=== PATIENT | female | born 1940 | race Caucasian/White ===

== ENCOUNTER 2016-11-28 10:02 | Outpatient (CLI) | payer MEDICARE, OTHER ==
--- NOTE | 2016-11-28 11:25 | XRAY Report ---
MODIFIED BARIUM SWALLOW: 11/28/2016 CLINICAL INDICATION: Chronic cough. FINDINGS: Various consistencies of barium were prepared and administered in conjunction with Speech Pathology. There was no evidence of penetration or aspiration with any administered consistency. Pl ease also refer to full report from Speech Pathology for further findings. IMPRESSION: NO EVIDENCE OF PENETRATION OR ASPIRATION. FLUOROSCOPY TIME: 55 seconds; 1 spot image obtained (cinefluoroscopy recorded). JOB #: [id number] EXT JOB #:[id number]
== END 2016-11-28 10:03 | disposition home or self-care (01) ==
LOC: DI 10:02
PROVIDERS: ATTEND Family Medicine
DX: R05 Cough (principal)
CPT/HCPCS: 74230; 92611; G8996; G8997; G8998

== ENCOUNTER 2017-04-25 08:30 | Outpatient (CLI) | payer MEDICARE, OTHER | END 2017-04-25 08:31 | LOC: LAB.R 08:30 | PROVIDERS: ATTEND Family Medicine | DX: T14.90XA Injury, unspecified, initial encounter (principal); L03.90 Cellulitis, unspecified | CPT/HCPCS: 87070; 87205 ==

== ENCOUNTER 2017-05-02 18:13 | Outpatient (CLI) | payer MEDICARE, OTHER ==
--- NOTE | 2017-05-04 11:22 | Ultrasound Report ---
DATE OF SERVICE: 05/02/2017 LIMITED LEFT EXTREMITY NONVASCULAR ULTRASOUND: 05/02/2017 COMPARISON: None. INDICATION: Hematoma or cellulitis of the left leg. TECHNIQUE: Sonographic evaluation of the area of concern the left lateral lower leg and left popliteal fossa. FINDINGS: Over the primary area of concern, which is the lateral left lower leg , there is a hypoechoic fluid collection. It measures 8.8 x 4.4 x 1.2 cm, and may represent a hematoma given the history: About the posterior fossa, there is a fluid collection measuring 2.4 x 1.9 x 1.0 cm, likely a Ibrahim's cyst. IMPRESSION: AT THE PRIMARY AREA OF CONCERN, WHICH IS THE LATERAL LEFT LOWER LEG , THERE IS A FLUID COLLECTION THAT IS NONSPECIFIC BUT MAY REPRESENT A HEMATOMA. CORRELATE CLINICALLY. FOLLOWUP IS AVAILABLE. TD: 05/03/2017 10:55 MTDD
== END 2017-05-02 18:14 | disposition home or self-care (01) ==
LOC: DI 18:13
PROVIDERS: ATTEND Family Medicine
DX: S80.12XA Contusion of left lower leg, initial encounter (principal)
CPT/HCPCS: 76882

== ENCOUNTER 2018-08-27 09:12 | Outpatient (CLI) | payer MEDICARE, OTHER ==
--- NOTE | 2018-08-27 10:33 | XRAY Report ---
Reason: ARTHRITIS,HIPS,BILATERAL Procedure Date: 08/27/2018 Accession Number: [id number] / [id number] Procedure: WCP - Hip BILAT CPT Code: FULL RESULT: EXAM: BILATERAL HIP RADIOGRAPHY EXAM DATE: 08/27/2018 09:33 AM. CLINICAL HISTORY: ARTHRITIS,HIPS,BILATERAL. COMPARISON: None. TECHNIQUE: 2 views each. FINDINGS: Bones: Normal. No fractures or bone lesion. Right Hip: Significant right hip joint space narrowing with subchondral sclerosis and marginal osteophyte formation. Left Hip: Significant left hip joint space narrowing with subchondral sclerosis and marginal osteophyte formation. Soft Tissues: Normal. No soft tissue swelling. Loss of lower lumbar spine disk space height would be better assessed on dedicated lumbar imaging. IMPRESSION: Moderate to advanced bilateral hip degenerative changes. Right: Kellgren Donato Grade 3. Left: Kellgren Donato Grade 3. Kellgren and Donato classification of osteoarthritis: Grade 0: no radiographic features of osteoarthritis are present Grade 1: doubtful joint space narrowing (JSN) and possible osteophytic lipping Grade 2: definite osteophytes and possible JSN on anteroposterior weight-bearing radiograph Grade 3: multiple osteophytes, definite JSN, sclerosis, possible bony deformity Grade 4: large osteophytes, marked JSN, severe sclerosis and definite bony deformity RADIA
== END 2018-08-27 09:13 | disposition home or self-care (01) ==
LOC: DI.WCP 09:12
PROVIDERS: ATTEND Physician Assistant
DX: M16.0 Bilateral primary osteoarthritis of hip (principal)
CPT/HCPCS: 73521

== ENCOUNTER 2018-09-10 13:39 | Outpatient (CLI) | payer MEDICARE, OTHER ==
[2018-09-10 18:49] LABS: ALBUMIN 3.5 g/dL (3.2-5.5); ALBUMIN/GLOBULIN RATIO 1.1 (1.0-2.2); BILIRUBIN,TOTAL 0.5 mg/dL (0.2-1.0); CALCIUM 10.2 mg/dL (8.5-10.3); CREATININE 0.6 mg/dL (0.4-1.0); TOTAL PROTEIN 6.8 g/dL (6.7-8.2)
[2018-09-10 19:18] LABS: H. PYLORIS ANTIGEN STL NEGATIVE (Negative)
[2018-09-10 19:31] LABS: BASOPHILS # (AUTO) 0.1 10^3/uL (0.0-0.1); BASOPHILS % (AUTO) 0.7 %; EOSINOPHILS # (AUTO) 0.2 10^3/uL (0.0-0.7); EOSINOPHILS % (AUTO) 2.1 %; LYMPHOCYTES # (AUTO) 1.2 10^3/uL (1.5-3.5); LYMPHOCYTES % (AUTO) 15.7 %; MEAN CORPUSCULAR HGB CONC 32.7 g/dL (32.0-36.0); MEAN CORPUSCULAR VOLUME 91.7 fL (81.0-99.0); MONOCYTES # (AUTO) 0.6 10^3/uL (0.0-1.0); NEUTROPHILS # (AUTO) 5.8 10^3/uL (1.5-6.6); NEUTROPHILS % (AUTO) 73.5 %; PLT - PLATELET COUNT 285 10^3/uL (130-450); RED BLOOD COUNT 4.66 10^6/uL (4.20-5.40); RED CELL DISTRIBUTION WIDTH 14.3 % (12.0-15.0); WHITE BLOOD COUNT 7.9 x10^3/uL (4.8-10.8)
== END 2018-09-10 13:40 | disposition home or self-care (01) ==
LOC: LAB.WCP 13:39
PROVIDERS: ATTEND Physician Assistant
DX: R19.7 Diarrhea, unspecified (principal)
CPT/HCPCS: 36415; 80053; 81599; 83630; 85025; 87045; 87046; 87329; 87338; 87493

== ENCOUNTER 2018-10-05 08:00 | Outpatient (CLI) | payer MEDICARE, OTHER | END 2018-10-05 23:59 | disposition home or self-care (01) | LOC: LAB.R 08:00 | PROVIDERS: ATTEND Family Medicine | DX: N39.0 Urinary tract infection, site not specified (principal) | CPT/HCPCS: 87086; 87181 ==

== ENCOUNTER 2019-02-25 09:45 | Outpatient (CLI) | payer MEDICARE, OTHER | END 2019-02-25 23:59 | disposition home or self-care (01) | LOC: LAB.WCP 09:45 | PROVIDERS: ATTEND Family Medicine | DX: N39.0 Urinary tract infection, site not specified (principal) | CPT/HCPCS: 81002; 87086; 87181 ==

== ENCOUNTER 2019-03-29 10:15 | Outpatient (CLI) | payer MEDICARE, OTHER | END 2019-03-29 23:59 | disposition home or self-care (01) | LOC: LAB.R 10:15 | PROVIDERS: ATTEND Physician Assistant | DX: N39.0 Urinary tract infection, site not specified (principal) | CPT/HCPCS: 87086; 87181 ==

== ENCOUNTER 2019-04-15 11:00 | Outpatient (CLI) | payer MEDICARE, OTHER | END 2019-04-15 23:59 | disposition home or self-care (01) | LOC: LAB.R 11:00 | PROVIDERS: ATTEND Physician Assistant | DX: N39.0 Urinary tract infection, site not specified (principal) | CPT/HCPCS: 87086; 87181 ==

== ENCOUNTER 2020-07-29 14:35 | Outpatient (CLI) | payer MEDICARE, OTHER ==
--- NOTE | 2020-07-29 16:28 | XRAY Report ---
PROCEDURE: Ribs w/PA Chest RT INDICATIONS: CONTUSION OF THORAX TECHNIQUE: 3 views of the right ribs were acquired, along with a single view chest. COMPARISON: Rib x-ray 10/19/2016 FINDINGS: Surgical changes and devices: None. Bones and chest wall: There is a nondisplaced right seventh rib fracture. No suspicious bony lesions. Overlying soft tissues appear unremarkable. Lungs and pleura: No pleural effusions or pneumothorax. Lungs appear clear. Mediastinum: Mediastinal contours appear normal. Heart size is normal. IMPRESSION: Nondisplaced right seventh rib fracture. Reviewed by: Park Chou MD on 07/29/2020 4:27 PM PDT Approved by: Park Chou MD on 07/29/2020 4:27 PM PDT Station ID: [id number]
== END 2020-07-29 23:59 ==
LOC: DI.N 14:35
PROVIDERS: ATTEND Nurse Practitioner
DX: S22.31XA Fracture of one rib, right side, initial encounter for closed fracture (principal)

== ENCOUNTER 2021-05-05 08:00 | Outpatient (CLI) | payer MEDICARE, OTHER ==
--- NOTE | 2021-05-05 16:36 | XRAY Report ---
PROCEDURE: Ankle 3 View RT INDICATIONS: R ANKLE PX TECHNIQUE: 3 views of the ankle were acquired. COMPARISON: None FINDINGS: Bones: Displaced fracture of the distal right fibula. Mortise is normally aligned. Soft tissues: No tibiotalar joint effusion. Achilles tendon appears normal. IMPRESSION: Distal right fibular fracture. Reviewed by: Sakina Collier MD, PhD on 05/05/2021 4:34 PM PST Approved by: Sakina Collier MD, PhD on 05/05/2021 4:34 PM PST Station ID: [id number]
== END 2021-05-05 23:59 ==
LOC: DI.N 08:00
PROVIDERS: ATTEND Family Medicine
DX: S82.831A Other fracture of upper and lower end of right fibula, initial encounter for closed fracture (principal)

== ENCOUNTER 2021-05-10 09:49 | Outpatient (CLI) | payer MEDICARE, OTHER ==
--- NOTE | 2021-05-10 13:18 | XRAY Report ---
PROCEDURE: Ankle 3 View RT INDICATIONS: RIGHT ANKLE FX TECHNIQUE: 3 views of the ankle were acquired. COMPARISON: 05/05/2021 FINDINGS: Bones: No change in mildly displaced oblique fracture of the distal fibula. Ankle mortise is normall y aligned. No suspicious bony lesions. Soft tissues: No tibiotalar joint effusion. Achilles tendon appears normal. IMPRESSION: No change in distal fibular fracture. Reviewed by: Gretel Chávez MD on 05/10/2021 1:17 PM PST Approved by: Gretel Chávez MD on 05/10/2021 1:17 PM [facility] Station ID: [id number]
== END 2021-05-10 09:50 | disposition home or self-care (01) ==
LOC: DI.WOS 09:49
PROVIDERS: ATTEND Orthopaedic Surgery
DX: S82.64XA Nondisplaced fracture of lateral malleolus of right fibula, initial encounter for closed fracture (principal)

== ENCOUNTER 2021-06-03 08:20 | Outpatient (CLI) | payer MEDICARE, OTHER ==
--- NOTE | 2021-06-03 16:19 | XRAY Report ---
PROCEDURE: Ankle 3 View RT INDICATIONS: F/U ANKLE FRACTURE TECHNIQUE: 3 views of the ankle were acquired. COMPARISON: 05/10/2021, 05/05/2021 FINDINGS: Bones: There is a healing mildly displaced spiral fracture of the distal fibula extending to the tibi ofibular syndesmosis. The fracture lines are more indistinct consistent with bony remodeling with sug gestion of early partial callus formation. No change in alignment or syndesmotic widerning. Ankle mor tise is normally aligned. No suspicious bony lesions. There is osteopenia. Soft tissues: There is a small tibiotalar joint effusion. Achilles tendon appears intact. IMPRESSION: 1. Healing distal fibular fracture without change in alignment. Reviewed by: Guilherme Pepe MD on 06/03/2021 4:18 PM PST Approved by: Guilherme Pepe MD on 06/03/2021 4:18 PM PST Station ID: [id number]
== END 2021-06-03 08:21 | disposition home or self-care (01) ==
LOC: DI.WOS 08:20
PROVIDERS: ATTEND Orthopaedic Surgery
DX: S82.831D Other fracture of upper and lower end of right fibula, subsequent encounter for closed fracture with routine healing (principal)

== ENCOUNTER 2022-05-20 13:04 | Outpatient (CLI) | payer MEDICARE, OTHER ==
--- NOTE | 2022-05-20 15:51 | DEXA Report ---
PROCEDURE: Dexa Spine and/or Hip INDICATIONS: POST MENOPAUSAL TECHNIQUE: Dual energy x-ray absorptiometry (DXA) was performed on a [employer] System. Regions measur ed are the AP Spine, femoral neck, and if needed forearm. COMPARISON: 01/14/2016 FINDINGS: Lumbar Spine: Bone Mineral Density 1.045 g/cm/cm,T score -1.1, osteopenia Left forearm: Left forearm was used for measurement secondary to presence of bilateral hip arthroplas ty. Bone Mineral Density 0.348 g/cm/cm, T score -5.4, osteoporosis (T score greater or equal to -1.0: NORMAL) (T score from -1.1 to -2.4: OSTEOPENIA) (T score less than or equal to -2.5 to: OSTEOPOROSIS) Impression: Severe osteoporosis. Patient is at high risk for fracture. Patients with diagnosis of osteoporosis or osteopenia should have regular bone mineral density assess ment. For those eligible for Medicare, routine testing is allowed once every 2 years. Testing frequ ency can be increased for patients who have rapidly progressing disease or for those who are receivin g medical therapy to restore bone mass. Reviewed by: Kevin Santiago MD on 05/20/2022 3:50 PM PST Approved by: Kevin Santiago MD on 05/20/2022 3:50 PM PST Station ID: [id number]
== END 2022-05-20 13:05 | disposition home or self-care (01) ==
LOC: DI 13:04
PROVIDERS: ATTEND Physician Assistant
DX: M81.0 Age-related osteoporosis without current pathological fracture (principal); Z78.0 Asymptomatic menopausal state

== ENCOUNTER 2022-11-21 12:54 | Outpatient (CLI) | payer MEDICARE, OTHER ==
[2022-11-21 13:14] LABS: BASOPHILS % (AUTO) 0.3 %; EOSINOPHILS # (AUTO) 0.1 10^3/uL (0.0-0.7); EOSINOPHILS % (AUTO) 0.6 %; HCT - HEMATOCRIT 43.3 % (37.0-47.0); HGB - HEMOGLOBIN 13.7 g/dL (12.0-16.0); LYMPHOCYTES # (AUTO) 1.1 10^3/uL (1.5-3.5); LYMPHOCYTES % (AUTO) 13.4 %; MEAN CORPUSCULAR HEMOGLOBIN 29.6 pg (27.0-31.0); MEAN CORPUSCULAR HGB CONC 31.6 g/dL (32.0-36.0); MEAN CORPUSCULAR VOLUME 93.5 fL (81.0-99.0); MONOCYTES # (AUTO) 0.8 10^3/uL (0.0-1.0); MONOCYTES % (AUTO) 9.4 %; PLT - PLATELET COUNT 235 10^3/uL (130-450); RED BLOOD COUNT 4.63 10^6/uL (4.20-5.40); RED CELL DISTRIBUTION WIDTH 12.8 % (12.0-15.0); WHITE BLOOD COUNT 7.9 x10^3/uL (4.8-10.8)
[2022-11-21 13:27] LABS: ALBUMIN 3.9 g/dL (3.2-5.5); ALBUMIN/GLOBULIN RATIO 1.1 (1.0-2.2); BILIRUBIN,TOTAL 0.7 mg/dL (0.2-1.0); CALCIUM 10.8 mg/dL (8.5-10.3); CREATININE 0.7 mg/dL (0.6-1.3); POTASSIUM 4.4 mmol/L (3.5-4.5); TOTAL PROTEIN 7.6 g/dL (6.4-8.9)
[2022-11-21 14:37] LABS: BILIRUBIN,URINE NEGATIVE (NEGATIVE); GLUCOSE, URINE (UA) NEGATIVE (NEGATIVE); KETONES,URINE (UA) NEGATIVE (NEGATIVE); LEUKOCYTE ESTERASE, URINE NEGATIVE (NEGATIVE); NITRITE,URINE NEGATIVE (NEGATIVE); OCCULT BLOOD,URINE NEGATIVE (NEGATIVE); PH,URINE 5.5 PH (5.0-7.5); PROTEIN,URINE NEGATIVE (NEGATIVE); UROBILINOGEN,URINE 0.2 (NORMAL) E.U./dL (NORMAL)
[2022-11-21 14:39] LABS: CLARITY,URINE CLEAR (CLEAR)
[2022-11-21 14:44] LABS: BACTERIA,URINE Rare /HPF (None Seen); RBC,URINE 0-5 /HPF (0-5); SQUAMOUS EPITHELIAL CELL,UR NONE SEEN (<= Few); WBC,URINE 0-3 /HPF (0-5)
== END 2022-11-21 12:55 | disposition home or self-care (01) ==
LOC: LAB 12:54
PROVIDERS: ATTEND Nurse Practitioner
DX: R10.2 Pelvic and perineal pain (principal); R10.9 Unspecified abdominal pain
CPT/HCPCS: 36415; 80053; 81001; 82150; 83690; 85025; 87086

== ENCOUNTER 2022-11-23 08:00 | Outpatient (CLI) | payer MEDICARE, OTHER ==
[2022-11-23 12:20] LABS: FECAL OCCULT BLOOD (FIT) POSITIVE (NEGATIVE)
== END 2022-11-23 23:59 | disposition home or self-care (01) ==
LOC: LAB.R 08:00
PROVIDERS: ATTEND Nurse Practitioner
DX: R10.2 Pelvic and perineal pain (principal)
CPT/HCPCS: 82274

== ENCOUNTER 2023-01-03 08:00 | Outpatient (CLI) | payer MEDICARE, OTHER | END 2023-01-03 23:59 | disposition home or self-care (01) | LOC: LAB 08:00 | PROVIDERS: ATTEND Physician Assistant Medical | DX: N39.0 Urinary tract infection, site not specified (principal) | CPT/HCPCS: 87086; 87181 ==

== ENCOUNTER 2023-01-09 08:29 | Outpatient (CLI) | payer MEDICARE, OTHER ==
--- NOTE | 2023-01-09 17:12 | Ultrasound Report ---
PROCEDURE: Pelvic w/Transvaginal INDICATIONS: PELVIC PAIN TECHNIQUE: Real-time scanning was performed of the pelvic organs, with image documentation. Additional endovagi nal scanning was necessary due to incomplete visualization of the adnexal and endometrial structures by transabdominal scanning. COMPARISON: 12/19/2013 FINDINGS: Uterus: Removed Ovaries: The right ovary is not visualized. The left ovary measures 1.8 x 1.2 x 1.2 cm, with a calcu lated ovarian volume of 1.4 cc. The ovaries have a normal sonographic appearance. Less than 12 foll icles can be seen in each ovary. No adnexal masses are seen. No cystic lesions measuring greater mauricio n 3 cm. Other: No pathologic free abdominal or pelvic fluid. IMPRESSION: Uterus and right ovary are not visualized. There is a focus within the left adnexa appearing to correlate to an ovary. Recommend correlation to prior oophorectomy. Reviewed by: Park Chou MD on 01/09/2023 5:11 PM PDT Approved by: Park Chou MD on 01/09/2023 5:11 PM PDT Station ID: [id number]
--- NOTE | 2023-01-09 17:14 | Ultrasound Report ---
PROCEDURE: Abdomen Complete INDICATIONS: ABD PAIN TECHNIQUE: Real-time scanning was performed of the abdominal and retroperitoneal organs, with image documentatio n. COMPARISON: None. FINDINGS: Liver: Liver measures 16.1 cm. Focus of decreased echogenicity is present in the posterior lobe hieu uring 1.9 cm. Gallbladder: Echogenic nonmobile focus is present within the gallbladder. Present measuring 1.8 cm. Wall thickness measures 2 mm. Biliary ducts: Intrahepatic bile ducts are non-dilated. Extrahepatic bile duct caliber measures 3 m m. Normal is 6-7 mm or less in diameter, or 10 mm or less post-cholecystectomy. Pancreas: Visualized portions of the pancreas are sonographically normal. Spleen: Spleen is normal in size and homogeneous in echotexture. Kidneys: Right kidney measures 9.7 cm long; left kidney measures 1.0 cm long. No hydronephrosis or nephrolithiasis. Hypoechoic focus is present on the left kidney measuring 1.8 cm suggestive of simpl e cysts. No solid masses. No complex renal cystic lesions which require follow-up. Aorta: Visualized aorta is normal in caliber at less than 3 cm. Iliacs: Proximal common iliac arteries are normal in caliber at less than 2.5 cm. IVC: Intrahepatic inferior vena cava is patent. Miscellaneous: No free abdominal fluid. IMPRESSION: Simple liver and renal cysts. Nonmobile echogenic focus within the gallbladder. This is suspected to represent adherent stones/slud ge or potentially polyp. Reviewed by: Park Chou MD on 01/09/2023 5:13 PM PDT Approved by: Park Chou MD on 01/09/2023 5:13 PM PDT Station ID: [id number]
== END 2023-01-09 08:30 | disposition home or self-care (01) ==
LOC: DI 08:29
PROVIDERS: ATTEND Nurse Practitioner
DX: K76.89 Other specified diseases of liver (principal); N28.1 Cyst of kidney, acquired

== ENCOUNTER 2023-02-20 08:00 | Outpatient (CLI) | payer MEDICARE, OTHER ==
[2023-02-20 18:41] LABS: FECAL OCCULT BLOOD (FIT) POSITIVE (NEGATIVE)
== END 2023-02-20 23:59 | disposition home or self-care (01) ==
LOC: LAB.N 08:00
PROVIDERS: ATTEND Nurse Practitioner
DX: Z12.11 Encounter for screening for malignant neoplasm of colon (principal)
CPT/HCPCS: 82274

== ENCOUNTER 2023-03-02 08:00 | Outpatient (CLI) | payer MEDICARE, OTHER | END 2023-03-02 23:59 | disposition home or self-care (01) | LOC: LAB.N 08:00 | PROVIDERS: ATTEND Physician Assistant Medical | DX: R30.0 Dysuria (principal) | CPT/HCPCS: 87077; 87086; 87181 ==

== ENCOUNTER 2023-03-06 11:51 | Day surgery (SDC) | payer MEDICARE, OTHER ==
[2023-03-06 12:21] VITALS: O2SAT 98
[2023-03-06] MEDS ORDERED: LACTATED RINGERS 1,000 ML IV ONE ×2 (12:33→15:08)
--- NOTE | 2023-03-06 13:08 | ANESTHESIA ---
Pre-Anesthesia VS, & Labs - Diagnosis pos FIT test - Procedure colonoscopy Vital Signs: Temp Pulse Resp BP Pulse Ox O2 Flow Rate 36.9 C 94 22 128/66 98 03/06/23 12:00 03/06/23 12:00 03/06/23 12:00 03/06/23 12:00 03/06/23 12:00 Height: 5 ft 7 in Weight (kg): 60.7 kg Body Mass Index: 20.9 BMI Classification: Normal - NPO >8 hours - Is Patient ?: No Home Medications and Allergies Home Medications: Ambulatory Orders Apixaban [Eliquis] 2.5 mg PO DAILY 03/06/23 Atorvastatin [Lipitor] 10 mg PO DAILY 03/06/23 Metoprolol Tartrate [Lopressor] 25 mg PO DAILY 03/06/23 Aspirin [Adult Low Dose Aspirin EC] 1 tab PO DAILY 05/02/17 Calcium Carbonate [[id number]] 500 mg PO BID 05/02/17 Cholecalciferol (Vitamin D3) [Vitamin D3] 1 units PO DAILY 05/02/17 Cyanocobalamin (Vitamin B-12) [Vitamin B-12 (100mcg tab)] 250 mcg PO DAILY 05/02/17 Glucosamine/Chondr Saravia A Sod [Glucosamine-Chondroitin Tablet] 1 tab PO DAILY 05/02/17 Krill/[place]-3/Dha/Epa/Lipids [Krill Oil 350 mg Softgel] 1 cap PO DAILY 05/02/17 Multivitamin [Multivitamins] 1 ea PO DAILY 05/02/17 Sulfamethoxazole/Trimethoprim [Bactrim 400-80 mg Tablet] 1 tab PO BID 05/02/17 Vitamin E (Dl,Tocopheryl Acet) [Vitamin E] 400 units PO DAILY 05/02/17 Apixaban [Eliquis] 2.5 mg PO DAILY 03/06/23 Atorvastatin [Lipitor] 10 mg PO DAILY 03/06/23 Metoprolol Tartrate [Lopressor] 25 mg PO DAILY 03/06/23 Allergies/Adverse Reactions: Allergies Allergy/AdvReac Type Severity Reaction Status Date / Time No Known Drug Allergies Allergy Verified 05/02/17 16:01 Anes History & Medical History - Anesthetic History Anesthesia Complications: reports: No previous complications Family history of Anesthesia Complications: Denies Family history of Malignant Hyperthermia: Denies - Medical History Cardiovascular: reports: High cholesterol, Coronary artery disease, [place], Atrial fibrillation Pulmonary: reports: Other Gastrointestinal: reports: None Urinary: reports: Retention, Other Musculoskeletal: reports: Osteoarthritis, Osteopenia, Fatigue, Chronic back pain Endocrine/Autoimmune: reports: None Blood Disorders: reports: None Skin: reports: None Smoking Status: Never smoker - Surgical History Gynecologic: reports: Hysterectomy Orthopedic: reports: Other Exam General: Alert, Oriented x3, Cooperative Dental: WNL Mouth Openin Fingerbreadth Neck Mobility: Normal Mallampati classification: I Thyromental Distance: 4-6 cm Respiratory: Lungs clear Cardiovascular: Regular rate Plan Anesthesia Type: General, Total IV Consent for Procedure(s) Verified and Reviewed: Yes Code Status: Attempt Resuscitation ASA classification: 2-Mild systemic disease Is this case an emergency?: No
[2023-03-06] MEDS ORDERED: PROPOFOL 500 MG/50 ML 500 MG/50 ML VIAL ONE ×2 (13:39)
--- NOTE | 2023-03-06 15:53 | ANESTHESIA POST OP EVALUATION ---
Anesthesia Post Eval - Post Anesthesia Eval Vitals: Last Vital Signs Temp 36.0 C L 03/06/23 15:08 Pulse 83 03/06/23 15:25 Resp 17 03/06/23 15:25 BP 131/64 H 03/06/23 15:25 Pulse Ox 98 03/06/23 15:25 O2 Flow Rate CV Function Including HR & BP: Stable Pain Control: Satisfactory Nausea & Vomiting: Negative Mental Status: Baseline Respiratory Status: Airway Patent Hydration Status: Satisfactory Anesthesia Complications: None
[2023-03-06 16:24] VITALS: BP 135/69
== END 2023-03-06 11:52 | disposition home or self-care (01) ==
LOC: SDS 11:51
PROVIDERS: ATTEND Surgery
DX: Z12.11 Encounter for screening for malignant neoplasm of colon (principal); R19.5 Other fecal abnormalities; K57.30 Diverticulosis of large intestine without perforation or abscess without bleeding; I48.91 Unspecified atrial fibrillation; I25.10 Atherosclerotic heart disease of native coronary artery without angina pectoris; Z79.01 Long term (current) use of anticoagulants; I25.2 Old myocardial infarction
CPT/HCPCS: G0121; J7120

== ENCOUNTER 2023-07-19 13:42 | Emergency (ER) | payer MEDICARE, OTHER | END 2023-07-19 13:45 | disposition left against medical advice (07) | LOC: ED 13:42 | DX: Z53.21 Procedure and treatment not carried out due to patient leaving prior to being seen by health care provider (principal) ==

== ENCOUNTER 2023-11-22 09:39 | Outpatient (CLI) | payer MEDICARE, OTHER ==
--- NOTE | 2023-11-22 15:32 | XRAY Report ---
PROCEDURE: Knee 2V LT INDICATIONS: PAIN IN LEFT KNEE TECHNIQUE: 2 views of the knee(s) were acquired. COMPARISON: None. FINDINGS: Bones: There is suggestion of a slightly depressed fracture involving tibial plateau. No other fract ure or dislocation. No suspicious bony lesions. Soft tissues: Moderate to large suprapatellar knee joint effusion. No suspicious soft tissue calcific ations or masses. IMPRESSION: Suggestion of slightly depressed lateral tibial plateau fracture with moderate to large joint effusio n concerning for lipohemarthrosis. Reviewed by: Ernst Knapp MD on 11/22/2023 3:31 PM PDT Approved by: Ernst Knapp MD on 11/22/2023 3:31 PM PDT Station ID: [id number]
--- NOTE | 2023-11-22 22:12 | XRAY Report ---
PROCEDURE: Ankle 3+V LT INDICATIONS: UNSPECIFIED INJURY OF LEFT ANKLE TECHNIQUE: 3 views of the ankle were acquired. COMPARISON: None. FINDINGS: Bones: Mildly displaced distal fibular fracture. Tibiotalar joint space is well-maintained without d islocation. There is no widening of the syndesmosis. Soft tissues: Prominent lateral tibiotalar joint effusion. Achilles tendon appears normal. IMPRESSION: Mildly displaced distal fibular fracture. Reviewed by: Park Chou MD on 11/22/2023 10:10 PM PDT Approved by: Park Chou MD on 11/22/2023 10:10 PM PDT Station ID: [id number]
== END 2023-11-22 23:59 | disposition home or self-care (01) ==
LOC: DI.N 09:39
PROVIDERS: ATTEND Nurse Practitioner
DX: M25.562 Pain in left knee (principal); M25.462 Effusion, left knee; S82.832A Other fracture of upper and lower end of left fibula, initial encounter for closed fracture

== ENCOUNTER 2023-11-28 13:31 | Outpatient (CLI) | payer MEDICARE, OTHER ==
--- NOTE | 2023-11-28 14:28 | CT Report ---
PROCEDURE: Lower Extremity LT WO INDICATIONS: FRACTURE OF LEFT TIBIA TECHNIQUE: Noncontrast 3-mm axial sections acquired from the distal tibial shaft to the talar dome, with coronal and sagittal reformats. For radiation dose reduction, the following was used: automated exposure c ontrol, adjustment of mA and/or kV according to patient size. COMPARISON: 11/22/2023 FINDINGS: Image quality: Excellent. Bones: There is an intra-articular fracture of the lateral tibial plateau. 3 mm cortical step-off wi th 3 mm cortical depression. The fracture does not extend to the tibial spine. Soft tissues: Lipohemarthrosis. Impression: Intra-articular fracture of the lateral tibial plateau, with 3 mm cortical depression. Reviewed by: Turner Multani MD on 11/28/2023 2:27 PM PDT Approved by: Turner Multani MD on 11/28/2023 2:27 PM PDT Station ID: [id number]
== END 2023-11-28 13:32 | disposition home or self-care (01) ==
LOC: DI 13:31
PROVIDERS: ATTEND Orthopaedic Surgery
DX: S82.142A Displaced bicondylar fracture of left tibia, initial encounter for closed fracture (principal)

== ENCOUNTER 2023-12-20 09:51 | Outpatient (CLI) | payer MEDICARE, OTHER ==
--- NOTE | 2023-12-20 16:45 | XRAY Report ---
PROCEDURE: Knee 3V LT INDICATIONS: NONDISP FX OF LATERAL MALLEOLUS OF LEFT FIBULA TECHNIQUE: 3 views of the knee(s) were acquired. COMPARISON: X-ray knee, CT knee 11/22/2023, 11/28/2023 FINDINGS: Bones: Fracture lucency along the medial aspect of the lateral tibial plateau has become more promin ent in compared to prior x-ray exam. There is intra-articular extension. No progressive depression. Soft tissues: Mild knee joint effusion. No suspicious soft tissue calcifications or masses. IMPRESSION: Stable alignment with slightly more prominent appearance of fracture lucency without significant inte rval depression of lateral tibial plateau fracture. Reviewed by: Park Chou MD on 12/20/2023 4:43 PM PDT Approved by: Park Chou MD on 12/20/2023 4:43 PM PDT Station ID: [id number]
--- NOTE | 2023-12-20 16:49 | XRAY Report ---
PROCEDURE: Ankle 3+V LT INDICATIONS: NONDISP FX OF LATERAL MALLEOLUS OF LEFT FIBULA TECHNIQUE: 2 views of the ankle were acquired. COMPARISON: X-ray ankle 11/22/2023 FINDINGS: Bones: Stable alignment of distal fibular fracture. Fracture lucencies are less visible. Soft tissues: Mild lateral malleolus or edema, decreased Achilles tendon appears normal. IMPRESSION: Stable alignment with less visible appearance of fracture lucencies of distal fibular fracture. Reviewed by: Park Chou MD on 12/20/2023 4:48 PM PDT Approved by: Park Chou MD on 12/20/2023 4:48 PM PDT Station ID: [id number]
== END 2023-12-20 09:52 | disposition home or self-care (01) ==
LOC: DI.N 09:51
PROVIDERS: ATTEND Orthopaedic Surgery
DX: S82.65XD Nondisplaced fracture of lateral malleolus of left fibula, subsequent encounter for closed fracture with routine healing (principal)